=== PATIENT | male | born 1930 | race Caucasian/White ===

== ENCOUNTER 2017-02-05 17:04 | Inpatient (IN) | payer MEDICARE, OTHER ==
[~2017-02-05] VITALS: Ht 170.2 cm; Wt 91.5 kg
[~2017-02-05 17:04] MED LIST: CHOL200025 PO; CYAN500L3 SL; FLEC100T2 PO; METO-386 PO; VIT B PO; WARF2.5T82 PO
[2017-02-05 17:17] VITALS: BP 148/81; PULSE 80; RESP 16; O2SAT 96
--- NOTE | 2017-02-05 17:43 | ED.REPORT ---
HPI-Abd Pain M 40 and Over Date of Service Feb 05, 2017 ED Provider: Lloyd Santos DO Pt is a 86 year old male with a history of hypertension, diverticulosis, and afib on Warfarin who presents to the ED sent from complaining of tight abdominal pain that radiated from his left-side to his right-side onset 5 days ago. He states that his PCP was concerned about his abdominal bloating which is why he came in. Additional symptoms include decreased appetite over the past few weeks that is worsening, lower leg edema, and SOB. He denies dysuria or vomiting. Pt states that his bowel movements have been regular, but are sometimes bloody due to hemorrhoids. He has had medication changes for his hypertension recently. Nursing Notes Stated Complaint: KIDNEYS Chief Complaint: Male Abdominal Pain Nursing Notes Reviewed: Yes Allergies: Coded Allergies: Latex, Natural Rubber (Verified Allergy, Intermediate, Hives, 02/05/17) Uncoded Allergies: SOAPS, DETERGENTS, BLEACH (Allergy, Unknown, 11/07/15) pt not sure of this senstivity Scheduled ([Vit B1 50 Mg]) 100 MG PO DAILY Cholecalciferol (Vitamin D3) (Vitamin D3) 2,000 Unit Tablet 2,000 UNIT PO DAILY Cyanocobalamin (Vitamin B-12) (B-12) 500 Mcg Tab.rapdis 500 MCG SL DAILY Diltiazem ER (Dilt XR) 120 Mg Cap.er.deg 120 MG PO DAILY Warfarin Sodium (Warfarin Sodium) 2.5 Mg Tablet 2.5 MG PO SAT,SAT,,SAT,SAT,S Warfarin Sodium (Warfarin Sodium) 2.5 Mg Tablet 2.5 MG PO BID ON SATURDAY ONLY General Time Seen by MD: 17:35 Chief Complaint Abdominal pain Hx Obtained From: Patient, Spouse Arrived By: Walk-in Sudden in Onset?: No Onset Occurred: 5 days ago Symptom Duration: Constant Location: : Diffuse Quality: Painful Severity: Current: Moderate Severity: Maximum: Severe Recent Healthcare: Recent doctor visit Similar Sx Previous: No Risk Factors )( AAA Risk Stratification Hypertension Smoking Risk factors reviewed Past Medical History Past Medical History Notes: Seen at [facility] for syncope, started on Levaquin for Pneumonia Past Medical History Lung Mass On CT - Bx negative for malignancy, following w/serial imaging Atrial fibrillation dx 04/01/2014 on coumadin Ureteral stone 02/12/2014 s/p ESWL by Dr. 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 No previous h/o cardiac disease - ECHO in 03/2014 showed EF 50%, normal RV function, RVSP 28, no valvular disease, LA mod dilated, RA mildly dilated - MIBI in 01/2013 showed questionable inferior defect, probably normal Lung biopsy [place] [address] Lucas, non-cancerous Reports: Atrial fibrillation, Thyroid disease Past Surgical History right ankle surgery Arthroscopic knee surgery Reports: Appendectomy Smoking History Former Smoker (quit in 1970) Social History Alcohol Use: 1-3 per day Other Social History: Good social support, Ambulatory Status Independent Review of Systems Decreased appetite over the past few weeks that is worsening Abdominal bloating Constitutional: Denies: Fever Respiratory: Reports: Shortness of breath, Denies: Non-productive cough, Prod cough, clear Cardiovascular: Denies: Chest pain GI: Reports: Abdominal pain, Denies: Vomiting Male: Denies Dysuria Musculoskeletal: Reports: Extremity swelling (lower leg edema) Complete sys rev & neg: except as marked. Physical Exam Initial Vital Signs Vital Signs (First) Date Time Temp Pulse Resp B/P Pulse Ox O2 Delivery O2 Flow Rate FiO2 02/05/17 17:17 36.5 80 16 148/81 96 Room Air 02/05/17 20:08 2 Initial VS: Reviewed Head / Eyes: Atraumatic, Normocephalic Neck: Supple, Full range of motion Extremities: Vascular intact, Neuro intact, No swelling, No tenderness Skin: Warm, Dry, No cyanosis Neurologic: Alert, Oriented, Nonfocal Psychiatric: Mood/affect normal, Behavior normal, Normal thought content General/Constitutional: Awake, Alert Respiratory / Chest: Atraumatic, Breath sounds NL, Breath sounds = bilat, No respiratory distress Good air movement Cardiovascular: Heart rate NL, Regular rhythm, Heart sounds NL Lower Ext Edema: Positive: Bilateral 1+, Pitting Abdomen: Atraumatic Tense distension with no focal tenderness Back: Full range of motion, Non-tender Interpretation & Diagnostics Blood Gas Labs: /7.48/37/113/27.9/4.1/ fiO2 of 5 liters Lab Results Interpretation Result Diagram: 02/05/17 17502/05/17 175 Test 02/05/17 17:00 02/05/17 17:59 02/05/17 18:00 02/05/17 22:50 Hold Purple Top Tube Received (Received) Hold Blue Top Tube Received (Received) Hold Red Top Tube Received (Received) Hold Chandler Top Tube Received (Received) White Blood Count 6.7th/mm3 (3.8-10.1) Red Blood Count 3.94mil/mm3 (4.40-5.80) Hemoglobin 14.3g/dL (13.8-17.2) Hematocrit 41.7% (41.0-50.0) Mean Corpuscular Volume 105.8fL (81-100) Mean Corpuscular Hemoglobin 36.3pg (27.0-35.0) Mean Corpuscular Hemoglobin Concent 34.3% (32.0-37.0) Red Cell Distribution Width 14.3% (12.3-15.4) Platelet Count 132bil/L (150-400) Neutrophils (%) (Auto) 69.6% (40-74) Lymphocytes (%) (Auto) 14.6% (14-46) Monocytes (%) (Auto) 14.1% (4-12) Eosinophils (%) (Auto) 0.9% (0-5) Basophils (%) (Auto) 0.5% (0-3) Prothrombin Time 44.8sec (8.1-12.5) Prothromb Time International Ratio 4.07ratio D-Dimer 0.81mg/L FEU (<0.50) Sodium Level 138mEq/L (134-144) Potassium Level 4.0mEq/L (3.5-5.2) Chloride Level 99mEq/L (97-108) Carbon Dioxide Level 23mmol/L (18-29) Blood Urea Nitrogen 11mg/dL (8-27) Creatinine 0.73mg/dL (0.76-1.27) Estimat Glomerular Filtration Rate 108mL/min (>59) Glucose Level 101mg/dL (60-99) Calcium Level 8.6mg/dL (8.5-10.1) Magnesium Level 1.9mg/dL (1.6-2.6) Total Bilirubin 2.3mg/dL (0.0-1.2) Aspartate Amino Transf (AST/SGOT) 89U/L (0-50) Alanine Aminotransferase (ALT/SGPT) 32U/L (0-44) Alkaline Phosphatase 149U/L (25-160) Pro-B-Type Natriuretic Peptide 461.5pg/mL (0-486) Total Protein 6.8g/dL (6.4-8.4) Albumin 2.8g/dL (3.4-5.0) Hold Bee Top Tube Received (Received) ECG Interpretation ECG Interpretation: Apparent sinus rhyhtm, Poor quality tracing due to patient's tremor Time: 18:02 Interpreted by: ED physician ECG Interpretation: Atrial fibrillation, rate 88 Old inferior infarct Time: 22:46 Interpreted by: ED physician X-Ray Chest Interpretation Chest Xray Interpretation: IMPRESSION: Left basilar atelectasis. Otherwise stable chest radiograph. Dictated by: Antione Marques M.D. on 02/05/2017 at 18:50 Approved by: Antione Marques M.D. on 02/05/2017 at 18:51 View: AP & lat Interpretation / Wet Read by: Interpret - Radiologist CT Abd / Pelvis Interpretation IMPRESSION: 1. Prominent loops of small bowel with air-fluid levels consistent with an adynamic ileus. No evidence of obstruction. 2. Cholelithiasis with no CT evidence of acute cholecystitis. 3. Cirrhosis with splenomegaly. Minimal varices. Moderate abdominal ascites. Dictated by: Antione Marques M.D. on 02/05/2017 at 20:05 Approved by: Antione Marques M.D. on 02/05/2017 at 20:11 Study type: Abdominal CT IV contrast, Abdom CT oral contrast Interpretation / Wet Read by: Interpret - Radiologist Re-Eval/Medical Decision Source of Hx: Old records Time of Eval: 21:55 Re-Evaluation/Progress Note: Pt rechecked. He states that his pain is now only left side instead of the right side. During his road test, he was really short of breath. Updated the family on his imaging and lab results. Discussed plan for admission. Pt understands and agrees with plan. All questions addressed. Time of Eval: 23:12 Patient Status: Condition improved Re-Evaluation/Progress Note: Pt rechecked. He states that he feels better with nitro. Consultation : Referral / Consult Name: Patricia Asif DO Consulted With: Hospitalist Call Returned at: 23:15 [place] Operator: Will see patient, Agrees with plan, Accepts admit Note: Discussed pt's case with hospitalist, Dr. Asif. She accepts admission. Counseled Regarding: Diagnosis, Lab results, Need for admission Discharge & Departure Primary Impression: Cirrhosis of liver with ascites Additional Impressions: Shortness of breath Elevated troponin Supratherapeutic INR Macrocytosis Disposition: ADMITTED TO HOSPITAL Vital Signs - All Vital Signs Date Time Temp Pulse Resp B/P Pulse Ox O2 Delivery O2 Flow Rate FiO2 02/05/17 23:00 81 16 131/83 95 Nasal Cannula 4 02/05/17 20:08 88 16 135/75 95 Nasal Cannula 2 02/05/17 17:17 36.5 80 16 148/81 96 Room Air )( All Prior VS Reviewed: Yes Condition: Stable Referrals: Jennifer Hunter DO (PCP) Scribe Attestation Portions of this note were transcribed by Meghan Lemons. I, Dr. Santos, personally performed the history, physical exam and medical decision-making; I reviewed and confirmed the accuracy of the information in the transcribed note. copies to: Jennifer Hunter Gary R DO Feb 05, 2017 17:43 Meghan Lemons Feb 05, 2017 18:13
[2017-02-05 18:06] LABS: BASOPHILS % (AUTO) 0.5 % (0-3); EOSINOPHILS % (AUTO) 0.9 % (0-5); MONOCYTES % (AUTO) 14.1 % (4-12); Mean Corpuscular Hemoglobin 36.3 pg (27.0-35.0); Mean Corpuscular Volume 105.8 fL (81-100); NEUTROPHILS % (AUTO) 69.6 % (40-74); Platelet Count 132 bil/L (150-400)
[2017-02-05] MEDS ORDERED: Iohexol 300 mg/mL 30 mL Inj PO ONE (18:10)
[2017-02-05 18:22] LABS: INR 4.07 ratio
[2017-02-05 18:29] LABS: TROPONIN T 0.02 ug/L (0.0-0.011)
[2017-02-05 18:40] LABS: Magnesium 1.9 mg/dL (1.6-2.6)
--- NOTE | 2017-02-05 18:52 | DRSVH ---
PROCEDURE: X-RAY CHEST, TWO VIEWS ([id number]) INDICATIONS: sob TECHNIQUE: 2 views of the chest were acquired. COMPARISON: [facility], CR, CHEST 2VW, 08/17/2014, 16:20. [facility], [place], C HEST 2VW, 06/04/2014, 8:49. [facility], CR, CHEST 2VW, 07/18/2011, 12:25. FINDINGS: Surgical changes and devices: None. Lungs and pleura: No pleural effusions or pneumothorax. Left basilar atelectasis otherwise the lungs are clear. Mediastinum: Mediastinal contours are normal. Heart size is normal. Bones and chest wall: No suspicious bony abnormalities. Soft tissues appear unremarkable. Thoracic spine degenerative change. IMPRESSION: Left basilar atelectasis. Otherwise stable chest radiograph. Dictated by: Antione Marques M.D. on 02/05/2017 at 18:50 Approved by: Antione Marques M.D. on 02/05/2017 at 18:51
[2017-02-05 20:08] VITALS: BP 135/75; PULSE 88; RESP 16; O2SAT 95
--- NOTE | 2017-02-05 20:12 | DRSVH ---
PROCEDURE: CT ABDOMEN AND PELVIS WITH CONTRAST ([id number]) INDICATIONS: abdominal distension TECHNIQUE: After the administration of oral and intravenous contrast, 5 mm thick sections acquired from the diap hragms to the symphysis. 5 mm thick coronal and sagittal reformats were performed. For radiation do se reduction, the following was used: automated exposure control, adjustment of mA and/or kV accordi ng to patient size. COMPARISON: None. FINDINGS: Image quality: Excellent. ABDOMEN: Lung bases: Lung bases are clear. Heart size is normal. Solid organs: Nodular confirmation of the liver consistent with cirrhosis. No discrete masses on this single phase CT. Cholelithiasis with no CT evidence of acute cholecystitis. Splenomegaly otherwise t he spleen is normal. The pancreas, adrenal glands are normal. Atrophic kidneys. 4 mm nonobstructing r enal calculus.. Peritoneum and bowel: Minimally dilated loops of small bowel with air-contrast levels. No evidence of obstruction. The colon is grossly normal. The stomach contains a moderate amount of oral contrast wa s otherwise normal. Moderate abdominal ascites. Nodes and vessels: No retroperitoneal or mesenteric adenopathy. Aorta and inferior vena cava are no rmal in caliber. Miscellaneous: No ventral hernias. PELVIS: Genitourinary: Bladder wall thickness is normal. Miscellaneous: No inguinal hernias or adenopathy. Bones: No suspicious bony lesions. No vertebral body compression fractures. IMPRESSION: 1. Prominent loops of small bowel with air-fluid levels consistent with an adynamic ileus. No evidenc e of obstruction. 2. Cholelithiasis with no CT evidence of acute cholecystitis. 3. Cirrhosis with splenomegaly. Minimal varices. Moderate abdominal ascites. Dictated by: Antione Marques M.D. on 02/05/2017 at 20:05 Approved by: Antione Marques M.D. on 02/05/2017 at 20:11
[2017-02-05] MEDS ORDERED: DILT120C46 PO (22:09)
--- NOTE | 2017-02-05 22:22 | ABG ---
DateTimeAnalyzed 22:12:08 -_ pH ____7.482 - pCO2 ___37.3__ -mmHg pO2 113 -mmHg HCO3- ___27.9__ -mmol/L ABE ____4.1__ -mmol/L tHb ___13.0__ -g/dL O2Hb ___97.9__ -% COHb ____2.2__ -% MetHb ____0.0__ -% sO2 ___99.9__ -% FIO2 ___21.0__ -% Drawn By MD - Date/Time Notified____ 22:21:00 -_ Liter_Flow ____5.00_ -L/min Oxygen Device 1 __CANNULA - Notified By MD - Notified Whom DR ANDELIN - K+ ____4.0__ -mmol/L 3.5 5.0 tO2 ___18.0__ -Vol% Manuel test _Positive -
[2017-02-05] MEDS ORDERED: LORazepam 0.5 mg Tablet PO ONE (22:35)
[2017-02-05] MEDS ORDERED: Nitroglycerin 2% 1 Gm Ointment TOPICAL ONE (22:35)
[2017-02-05 23:00] VITALS: BP 131/83; PULSE 81; RESP 16; O2SAT 95
[2017-02-05 23:31] VITALS: BP 124/74; PULSE 86; RESP 21; O2SAT 96
[2017-02-06] VITALS (9 sets, daily range): BP systolic 109–136; BP diastolic 61–80; PULSE 72–95; RESP 16–22; O2SAT 95–98
[2017-02-06] MEDS ORDERED: Ondansetron 2 mg/mL 2 mL Inj IVPUSH PRN
[2017-02-06] MEDS ORDERED: Polyethylene Glycol (PEG) 17 Gm Powder PO PRN
[2017-02-06] MEDS ORDERED: Alum-Mag Hydrox-Simeth 30 mL Suspension PO PRN
--- NOTE | 2017-02-06 00:36 | PCM.HPMED ---
Subjective Date of Service Feb 06, 2017 Primary Provider: Admitting Physician: Patricia Asif DO Primary Care Physician: Jennifer Hunter DO Attending Physician: Patricia Asif DO Chief Complaint: Abdominal Swelling and Pain History of Present Illness: Patient is a pleasant 86 y/o [place] male with past medical history of HTN, Diverticulosis, Afib on Warfarin who was sent by his PCP, Dr. Hunter, for increased ABD swelling and pain with associated SOB. Patient states that swelling began 2 weeks ago when he noticed that he was 7lbs heavier that the few days before, and his belly seemed more tense. For the past week, patient has had dull ABD pain that was mainly on the lower left quadrant and would radiate across to the right side. Patient has a significant EtOH history with 2 -3 whiskey drinks with soda a day, but he reports that he "cut back" 3 months ago to just wine. Patient drinks 3 glasses of wine a day. Patient denies any previous ABD swelling in the past, and has never had a formal diagnosis of cirrhosis. Patient reports that he does have internal and external hemorrhoids from frequent constipation that will bleed occasionally. Associated symptoms include SOB, and the patient has had mild CP in the ED. Denies fevers, chills, N/V/D, cough, muscle pain, dark stools, dysuria, or hematuria. In the ED, patient had mild CP and a serum trop came back 0.02 without any EKG changes. Trops are trending. Patient was given NTG with resolution of sxs, and one dose of 0.5mg Ativan. ABD CT showed cirrhosis w/ splenomegaly with moderate abdominal ascites. Review of Systems: ROS negative unless otherwise noted above. Allergies Coded Allergies: Latex, Natural Rubber (Verified Allergy, Intermediate, Hives, 02/05/17) Uncoded Allergies: SOAPS, DETERGENTS, BLEACH (Allergy, Unknown, 11/07/15) pt not sure of this senstivity Home Medications ([Vit B1 50 Mg]) 100 MG PO DAILY Cholecalciferol (Vitamin D3) (Vitamin D3) 2,000 Unit Tablet 2,000 UNIT PO DAILY Cyanocobalamin (Vitamin B-12) (B-12) 500 Mcg Tab.rapdis 500 MCG SL DAILY Diltiazem ER (Dilt XR) 120 Mg Cap.er.deg 120 MG PO DAILY Warfarin Sodium (Warfarin Sodium) 2.5 Mg Tablet 2.5 MG PO MON,WED,,SAT,SAT,S Warfarin Sodium (Warfarin Sodium) 2.5 Mg Tablet 2.5 MG PO BID ON SATURDAY ONLY PMH Lung Mass On CT - Bx negative for malignancy, following w/serial imaging Atrial fibrillation on Warfarin Ureteral stone HTN L shoulder osteoarthritis H/o Tuberculosis in 1970 s/p tx x 9months Cataracts Eczema Impaired fasting glucose Mild diverticulosis No previous h/o cardiac disease - ECHO in 03/2014 showed EF 50% Lung biopsy [place] [address] Lucas, non-cancerous Surgical History R ankle surgery Appendectomy Knee arthroscopy Family History Noncontributory Social History Hx Alcohol Use: Yes (quit 3 whiskey/day 3 months ago; drinks 3 glasses of wine a day) Alcoholic Drinks Per Day: 3 glasses of wine per day Hx Substance Use: No Hx Tobacco Use: No (QUIT 30 YEARS AGO) Smoking Status: Former Smoker (quit in 1970) Living Arrangement: with Family Exam Vital Signs Vital Sign - Last Date Time Temp Pulse Resp B/P Pulse Ox O2 Delivery O2 Flow Rate FiO2 02/06/17 00:08 87 22 122/74 95 Nasal Cannula 2 02/05/17 17:17 36.5 Intake and Output 02/05/17 02/05/17 02/06/17 Cumulative From/Thru 15:00 23:00 07:00 02/05/17 17:17 - 02/05/17 20:08 Intake Total 900 ml 900 ml Balance 900 ml 900 ml Intake Oral 900 ml 900 ml Exam Constitutional: Awake, alert and oriented x4, no acute distress Head: normocephalic and atraumatic Eyes: mild scleral icterus, pink conjunctiva; pupils equal round and reactive to light Mouth: no posterior oropharynx erythema. uvula midline Heart: regular rate with and irregularly irregular rhythm; no murmurs rubs or gallops; 3+ pitting edema. Lungs: mild expiratory wheeze bilaterally. no rales or rhonchi ABD: protuberant, tense with positive fluid wave. bowel sounds present throughout Musculoskeletal: moves all four extremities appropriately; 5/5 boxing trainer strength bilaterally Neuro: CN II-XII intact. no focal deficits. Skin: warm, dry, no rash Psych: appropriate mood and affect Lab and Diagnostics Labs Item Value Date Time Red Blood Count 3.94 mil/mm3 L 02/05/171758 Mean Corpuscular Volume 105.8 fL H 02/05/171758 Mean Corpuscular Hemoglobin 36.3 pg H 02/05/171758 Mean Corpuscular Hemoglobin Concent 34.3 % 02/05/171758 Red Cell Distribution Width 14.3 % 02/05/171758 Neutrophils (%) (Auto) 69.6 % 02/05/17 175 Lymphocytes (%) (Auto) 14.6 % 02/05/17 175 Monocytes (%) (Auto) 14.1 % H 02/05/171758 Eosinophils (%) (Auto) 0.9 % 02/05/171758 Basophils (%) (Auto) 0.5 % 02/05/171758 Estimat Glomerular Filtration Rate 108 mL/min 02/05/171758 Calcium Level 8.6 mg/dL 02/05/171758 Magnesium Level 1.9 mg/dL 02/05/171758 Total Bilirubin 2.3 mg/dL H 02/05/171758 Aspartate Amino Transf (AST/SGOT) 89 U/L H 02/05/17 175 Alanine Aminotransferase (ALT/SGPT) 32 U/L 02/05/171758 Alkaline Phosphatase 149 U/L 02/05/171758 Troponin T 0.020 ug/L H 02/05/171758 Troponin T 0.023 ug/L H 02/05/172249 Pro-B-Type Natriuretic Peptide 461.5 pg/mL 02/05/171758 Total Protein 6.8 g/dL 02/05/171758 Albumin 2.8 g/dL L 02/05/171758 Prothrombin Time 44.8 sec H 02/05/171758 Prothromb Time International Ratio 4.07 ratio 02/05/171758 D-Dimer 0.81 mg/L FEU H 02/05/171758 Result Diagram: 02/05/17175802/05/171758 X-Rays, CTs and MRIs PROCEDURE: X-RAY CHEST, TWO VIEWS IMPRESSION: Left basilar atelectasis. Otherwise stable chest radiograph. Dictated by: Antione Marques M.D. on 02/05/2017 at 18:50 PROCEDURE: CT ABDOMEN AND PELVIS WITH CONTRAST IMPRESSION: 1. Prominent loops of small bowel with air-fluid levels consistent with an adynamic ileus. No evidence of obstruction. 2. Cholelithiasis with no CT evidence of acute cholecystitis. 3. Cirrhosis with splenomegaly. Minimal varices. Moderate abdominal ascites. Dictated by: Antione Marques M.D. on 02/05/2017 at 20:05 12-lead ECG Sinus rhythm HR 88 Assessment & Plan Patient is a pleasant 86 y/o [place] male with past medical history of HTN, Diverticulosis, Afib on Warfarin who was sent by his PCP, Dr. Hunter, for increased ABD swelling and pain with associated SOB. - Acute Abdominal Ascites, Present on Admission, Active, Stable - Patient has moderate ABD ascites with associated pain and an active EtOH history with positive ascites on ABD CT - Hold IVF - Start Furosemide 60mg IV daily, adjust as needed - Start Spironolactone 25mg PO daily - Prep for Paracentesis of ABD fluid for tomorrow -Hold Anticoagulation until paracentesis - Obtain fluid studies that include: fluid Albumin, Cell Count, Culture, Gram Stain, Protein, lactate dehydrogenase, and Amylase - Obtain serum albumin in AM for SAAG - Acute Alcoholic Cirrhosis, Present on Admission, Active - Patient has an active EtOH history with AST: 89 and ALT 32 with positive cirrhotic findings on ABD CT - Consult GI for newly diagnosed Cirrhosis - Obtain Hepatitis panel - Acute Elevated Troponin, Present on Admission, Active - Patient had CP in ED with elevated troponin of 0.02 and no EKG changes - Trending troponin Q6 - Monitor - Acute Hyperbilirubinemia, POA, Active - Patient with cirrhosis/ascites and bilirubin of 2.3 on admission, evidence of cholelithiasis on CT w/o cholecystitis - Trend bilirubin following paracentesis - Monitor - Chronic Macrocytic Anemia, POA, Active - Patient has history of macrocytosis with MCV in the low 100s; 105 on admission - Order Vit B12/Thiamine studies - Continue home dose of B12 - Thiamine 100mg PO daily - History of Active EtOH Abuse, POA, Active, Stable - Patient has a h/o EtOH abuse with daily 3 glasses of wine a day and h/o whiskey use - CIWA protocol until cleared - Order Vitamin B12/Thiamine studies - Continue home dose of B12 - History of Afib, Stable - patient takes Warfarin daily - AM PT/INR before procedure - Hold off of anticoagulation until after paracentesis, then restart Warfarin following procedure - History of HTN, Stable - Patient was d/c'd off of Metoprolol Succinate 12.5 mg PO daily on 02/05 - Hold off of further blood pressure medications other than those listed above until after paracentesis, will monitor BP after procedure. Patient is admitted under inpatient status expected length of stay greater than 2 midnights due to severity of presenting symptoms, risk of adverse events, and complexity of treatment plan. Patient is Full Code Pain Evaluation: Adequate Pain Control GI Prophylaxis: Proton Pump Inhibitor VTE Prophylaxis Indicated: VTE on Admission VTE Prophylaxis: Theraputic Anticoag with Warfarin Resuscitation Status: CPR: Attempt Resuscitation Attending Statement The patient was seen and examined together with house staff on 02/06/2017 and I agree with the history, exam and plan as outlined in the note above. Seth Piedra DO Feb 06, 2017 00:36 Patricia Asif DO Feb 06, 2017 05:09
[2017-02-06] MEDS: Furosemide 10 mg/mL 4 mL Inj IVPUSH SCH ×2 (00:47→09:14)
[2017-02-06] MEDS: Multivit-Miner-Folic Acid-Iron Tablet PO SCH ×2 (00:50→09:12)
[2017-02-06] MEDS ORDERED: LORazepam 0.5 mg Tablet PO PRN (01:25)
[2017-02-06] MEDS ORDERED: Magnesium Sulf 2 Gm/50 mL D5W IV PRN (01:25)
[2017-02-06] MEDS ORDERED: cloNIDine 0.1 mg Tablet PO PRN (01:25)
[2017-02-06] MEDS ORDERED: Flumazenil 0.1 mg/mL 5 mL Inj IV PRN (01:25)
[2017-02-06] MEDS ORDERED: Haloperidol 5 mg/mL Inj IV PRN ×2 (01:25)
[2017-02-06] MEDS ORDERED: LORazepam 1 mg Tablet PO PRN ×2 (01:25)
[2017-02-06 01:43] LABS: APPEARANCE,URINE HAZY (CLEAR,HAZY); COLOR,URINE YELLOW (YELLOW); OCCULT BLOOD,URINE LARGE (NEGATIVE); PH,URINE 6.5 (5.0-8.0); UROBILINOGEN,URINE NORMAL (NORMAL)
--- NOTE | 2017-02-06 03:51 | NUR ---
ADMIT Patient denies pain upon initial assessment. Up frequently after IV lasix. Needs constant reminders to not get up without assistance. Urinal is at bedside and instructed on how to use while in bed. Patient insists on getting up and does not call. Porter alarm in place. Seizure pads in place per [facility] protocol. Oriented to room and call light. Care is ongoing.
[2017-02-06] MEDS: chlordiazePOXIDE 25 mg Capsule PO SCH ×4 (03:57→20:50)
[2017-02-06 08:27] LABS: BASOPHILS % (AUTO) 0.5 % (0-3); EOSINOPHILS % (AUTO) 0.7 % (0-5); MONOCYTES % (AUTO) 14.4 % (4-12); Mean Corpuscular Hemoglobin 36.2 pg (27.0-35.0); Mean Corpuscular Volume 106.3 fL (81-100); NEUTROPHILS % (AUTO) 73.7 % (40-74); Platelet Count 111 bil/L (150-400)
[2017-02-06] MEDS ORDERED: FLC50T PO (08:27)
[2017-02-06] MEDS: Diltiazem CD 120 mg ER24 Capsule PO SCH (09:12)
[2017-02-06] MEDS: Pantoprazole 20 mg ER24 Tablet PO SCH ×2 (09:13→15:27)
--- NOTE | 2017-02-06 12:57 | PCM.PNMED ---
Subjective Date of Service Feb 06, 2017 Subjective No complaints. No further episodes of chest discomfort. No longer having any abdominal pain and feels that abdomen is a little softer. Exam Vital Signs Vital Sign - Last Date Time Temp Pulse Resp B/P Pulse Ox O2 Delivery O2 Flow Rate FiO2 02/06/17 10:00 81 02/06/17 09:17 36.6 16 109/61 95 Room Air 02/06/17 06:00 2.00 Intake and Output 02/05/17 02/05/17 02/06/17 Cumulative From/Thru 15:00 23:00 07:00 02/05/17 17:17 - 02/06/17 06:02 Intake Total 900 ml 0 ml 900 ml Output Total 1350 ml 1350 ml Balance 900 ml -1350 ml -450 ml Intake Oral 900 ml 0 ml 900 ml Output Urine Total 1350 ml 1350 ml Exam General: Alert and oriented x 3, no acute distress Heart: irregular Lungs: Clear Abdomen: Soft, protuberant with central tympany, non-tender, active BT Extremities: 1+ pitting edema of feet which is trace just below knees IVs and Medications Medications Reviewed: Medications were reviewed in detail Lab and Diagnostics Result Diagram: 02/06/17 0540 02/05/17 1759 X-Rays, CTs and MRIs PROCEDURE: X-RAY CHEST, TWO VIEWS IMPRESSION: Left basilar atelectasis. Otherwise stable chest radiograph. Dictated by: Antione Marques M.D. on 02/05/2017 at 18:50 PROCEDURE: CT ABDOMEN AND PELVIS WITH CONTRAST IMPRESSION: 1. Prominent loops of small bowel with air-fluid levels consistent with an adynamic ileus. No evidence of obstruction. 2. Cholelithiasis with no CT evidence of acute cholecystitis. 3. Cirrhosis with splenomegaly. Minimal varices. Moderate abdominal ascites. Dictated by: Antione Marques M.D. on 02/05/2017 at 20:05 12-lead ECG Sinus rhythm HR 88 Assessment & Plan Patient is a pleasant 86 y/o [place] male with past medical history of HTN, Diverticulosis, Afib on Warfarin who was sent by his PCP, Dr. Hunter, for increased ABD swelling and pain with associated SOB. - Acute Abdominal Ascites, Present on Admission, Active, Stable - Patient has moderate ABD ascites with associated pain (on admission) and an active EtOH history with positive ascites on ABD CT - today no abd pain or tenderness so SBE less likely - Hold IVF - Continue Furosemide 60mg IV daily, adjust as needed - Continue Spironolactone 25mg PO daily - Paracentesis of ABD fluid could not be done today due to prolonged INR (from last alena), recheck today and in am - Hold Anticoagulation until paracentesis - Obtain fluid studies that include: fluid Albumin, Cell Count, Culture, Gram Stain, Protein, lactate dehydrogenase, and Amylase - Obtain serum albumin in AM for SAAG (with chem panel) - Acute Alcoholic Cirrhosis, Present on Admission, Active - Patient has an active EtOH history with AST: 89 and ALT 32 with positive cirrhotic findings on ABD CT - Consider consult GI for newly diagnosed Cirrhosis - Hepatitis panel pending - possible UTI - UA positive leuk & nitrate, WBC 6-10 [id number] - will wait for urine culture results - Acute Elevated Troponin, Present on Admission, Active - Patient had CP in ED with elevated troponin of 0.02 and no EKG changes - Will recheck troponin today and then again in the am - Acute Hyperbilirubinemia, POA, Active - Patient with cirrhosis/ascites and bilirubin of 2.3 on admission, evidence of cholelithiasis on CT w/o cholecystitis - Trend bilirubin following paracentesis - Monitor - Chronic Macrocytic Anemia, POA, Active - Patient has history of macrocytosis with MCV in the low 100s; 105 on admission - Order Vit B12/Thiamine studies (pending) - Continue home dose of B12 - Thiamine 100mg PO daily - History of Active EtOH Abuse, POA, Active, Stable - Patient has a h/o EtOH abuse with daily 3 glasses of wine a day and h/o whiskey use - so far no signs/symptoms of withdrawal - CIWA protocol until cleared - Order Vitamin B12/Thiamine studies (pending) - Continue home dose of B12 - History of Afib, Stable - patient takes Warfarin daily - AM PT/INR before procedure - Hold off of anticoagulation until after paracentesis, then restart Warfarin following procedure - History of HTN, Stable - Patient was d/c'd off of Metoprolol Succinate 12.5 mg PO daily on 02/05 - Hold off of further blood pressure medications other than those listed above until after paracentesis, will monitor BP after procedure. Patient is admitted under inpatient status expected length of stay greater than 2 midnights due to severity of presenting symptoms, risk of adverse events, and complexity of treatment plan. Patient is Full Code GI Prophylaxis: Proton Pump Inhibitor VTE Prophylaxis: Theraputic Anticoag with Warfarin Resuscitation Status: CPR: Attempt Resuscitation Miriam Peters MD Feb 06, 2017 12:56 Miriam Peters MD Feb 06, 2017 12:56
--- NOTE | 2017-02-06 13:18 | NUR ---
NUTRITION ASSESSMENT: ASSESS: 86 YO male admitted for increased abd. pain and swelling with likely new diagnosis of cirrhosis. Pt with ETOH use history. Pt may have paracentesis today. PMHx: HTN, diverticulosis, a-fib on coumadin, ureteral stone, lung mass on CT(not malignant per biopsy), cataracts, eczema. LABS: Reviewed. Glu 101, Cr .73, AST 80, Alb 2.8. MEDS: Reviewed. Coumadin GI: No bm reported yet. CURRENT WT: 91.5 kg. (pt still with ascites and edema so likely not pt dry weight) IBW: 67.3 kg. DIET: General, Low sodium. No po intake reported. EST. NEEDS: [id number] kcals (22-30 kcals/kg BW), 80-100 g protein (1.2-1.5 g/kg IBW) NUTRITION DIAGNOSIS: 1.) Increased nutrient needs related to increased demand for nutrients as evidenced by new diagnosis of cirrhosis. NUTRITION INTERVENTION: 1.) Consider adding supplements if PO intake is not adequate to meet pt est. needs over the next 3-5 days. 2.) Recommend re-estimated est. needs once dry weight has been obtained. MONITOR / EVAL: PO intake, labs, nutritional status. Follow per moderate nutritional risk guidelines.
[2017-02-06 13:35] LABS: INR 3.29 ratio
--- NOTE | 2017-02-06 15:04 | NUR ---
Social Work-initial assessment: Data:See initial assessment. Pt is a 86 y/o male who was admitted on 02/05/17 for shortness of breath per H&P. Pt's insurance is [employer] and [employer] and PCP is Sierra Addison MD. EMR reviewed. SW met with pt at bedside to discuss discharge planning, SW role explained. Pt is alert and oriented x3. Pt resides at home with his on [facility] where he remains independent with basic ADLS. Pt does not drive and uses a fww or w/c at baseline. Pt also has home CPAP. Pt has no [facility] care insurance or VA benefits. SW discussed DPOA/ advanced directive, pt confirms he has completed this, SW encouraged a copy to be brought in. Pt confirms he will likely discharge home when medically stable. No concerns noted around pt's capacity for self care, from RN or MD. SW provided pt with discharge planning checklist and encouraged pt to call with any questions, phone number provided. Pt's to provide transport home. No anticipated discharge needs. SW will continue to follow if needs arise. Assessment:Pt who is independent at baseline. Plan:Pt to discharge home when medically stable via POV. No anticipated discharge needs. SW will continue to follow if needs arise. DAVIN Crandall Addendum: 02/06/17 at 1514 by FLOR MOON SS Amended: Links added.
[2017-02-07] VITALS (8 sets, daily range): BP systolic 118–132; BP diastolic 68–82; PULSE 64–89; RESP 18–20; O2SAT 95–97
[2017-02-07 02:08] LABS: Hepatitis A Antibody IgM Negative (Negative); Hepatitis B Core Antibody IgM Negative (Negative)
[2017-02-07 03:08] LABS: Vitamin B12 1534 pg/mL (211-946)
--- NOTE | 2017-02-07 04:45 | NUR ---
Uneventful night PT rested comfortably all night with no complaints of pain and only a little SOBOE. ABD still very distended with hyper bowel sounds, PT anticipating paracentesis today if his INR is at an appropriate level.
[2017-02-07 06:07] LABS: BASOPHILS % (AUTO) 0.2 % (0-3); EOSINOPHILS % (AUTO) 2.1 % (0-5); MONOCYTES % (AUTO) 14.4 % (4-12); Mean Corpuscular Hemoglobin 35.8 pg (27.0-35.0); Mean Corpuscular Volume 106.3 fL (81-100); NEUTROPHILS % (AUTO) 68.3 % (40-74); Platelet Count 107 bil/L (150-400)
[2017-02-07 07:03] LABS: TROPONIN T 0.029 ug/L (0.0-0.011)
[2017-02-07] MEDS ORDERED: Potassium Chloride 20 mEq SR Tablet PO ONE (08:10)
[2017-02-07] MEDS ORDERED: Magnesium Sulf 2 Gm/50mL Water 2 GM in IV Premix 1 EACH IV ONE (08:10)
[2017-02-07] MEDS ORDERED: Furosemide 10 mg/mL 4 mL Inj IVPUSH SCH ×2 (08:30→20:30)
[2017-02-07 09:08] LABS: INR 2.89 ratio
[2017-02-07] MEDS: Multivit-Miner-Folic Acid-Iron Tablet PO SCH (09:14)
[2017-02-07] MEDS: Diltiazem CD 120 mg ER24 Capsule PO SCH (09:15)
[2017-02-07] MEDS: Pantoprazole 20 mg ER24 Tablet PO SCH ×2 (09:15→17:20)
--- NOTE | 2017-02-07 13:23 | PCM.PNMED ---
Subjective Date of Service Feb 07, 2017 Subjective pt was eating breakfast, denied any SOB, but still has very distended belly, similar to yesterday had normal BM yesterday, denied pain on belly, no n,v responded to 60mg iv lasix qd, chged to 40mg iv given normal renal function, awaits INR Exam Vital Signs Vital Sign - Last Date Time Temp Pulse Resp B/P Pulse Ox O2 Delivery O2 Flow Rate FiO2 02/07/17 05:54 64 02/07/17 05:43 36.2 18 118/68 97 Room Air 02/06/17 06:00 2.00 Intake and Output 02/06/17 02/06/17 02/07/17 Cumulative From/Thru 15:00 23:00 07:00 02/05/17 17:17 - 02/07/17 05:46 Intake Total 620 ml 200 ml 1720 ml Output Total 1200 ml 1000 ml 3550 ml Balance -580 ml -800 ml -1830 ml Intake Oral 620 ml 200 ml 1720 ml Output Urine Total 1200 ml 1000 ml 3550 ml # Voids 3 3 # Bowel Movements 2 0 2 Exam AAOX3, no flapping tremor NAD, comfortably laying down on the bed no JVD, MMM, no LAD RRR, nl s1, s2 no mrg CTAB, no w,c S,markedly distended, nontender, BS+ 2+edema bilaterally, erythematous, IVs and Medications Medications Reviewed: Medications were reviewed in detail Lab and Diagnostics Result Diagram: 02/07/17 0500 02/07/17 0500 X-Rays, CTs and MRIs PROCEDURE: X-RAY CHEST, TWO VIEWS IMPRESSION: Left basilar atelectasis. Otherwise stable chest radiograph. Dictated by: Antione Marques M.D. on 02/05/2017 at 18:50 PROCEDURE: CT ABDOMEN AND PELVIS WITH CONTRAST IMPRESSION: 1. Prominent loops of small bowel with air-fluid levels consistent with an adynamic ileus. No evidence of obstruction. 2. Cholelithiasis with no CT evidence of acute cholecystitis. 3. Cirrhosis with splenomegaly. Minimal varices. Moderate abdominal ascites. Dictated by: Antione Marques M.D. on 02/05/2017 at 20:05 12-lead ECG Sinus rhythm HR 88 Assessment & Plan Patient is a pleasant 86 y/o [place] male with past medical history of HTN, Diverticulosis, Afib on Warfarin who was sent by his PCP, Dr. Hunter, for increased ABD swelling and pain with associated SOB. acute, active - Acute Abdominal Ascites, Present on Admission, Active, Stable, Patient has moderate ABD ascites with associated pain (on admission) and an active EtOH history with positive ascites on ABD CT - pt remained clinically stable with ascities, SBE less likely - Hold IVF - s/p 60mg lasix iv, chg to 40mg iv bid, Continue Spironolactone 25mg PO daily - hold Anticoagulation until paracentesis - Obtain fluid studies that include: fluid Albumin, Cell Count, Culture, Gram Stain, Protein, lactate dehydrogenase, and Amylase - Obtain serum albumin in AM for SAAG (with chem panel) #Newly diagnosed decompensated Cirrhosis, presumably due to alcohol abuse, POA, labs showed mild transaminitis, coagulapathy(hard to interpret given Warfarin on board), abd CT showed, new onset ascites, minimal varices. Viral hep panel neg. -no signs of HE, variceal bleeding, FU with GI for baseline w/u given cirrhosis , -addressed etoh cessation, pt seems to agree. -will consider nonselective BB chronic, stable, resolved, #positive UA, UCX grew mixed john, remained asymptomatic #Acute Elevated Troponin, Present on Admission, Active, Patient had CP in ED with elevated troponin of 0.02 and no EKG changes, likely demand, level plateaued, won't trend anymore # Chronic Macrocytic Anemia, POA, Active - Patient has history of macrocytosis with MCV in the low 100s; 105 on admission - Order Vit B12/Thiamine studies (pending) - Continue home dose of B12 - Thiamine 100mg PO daily # History of Active EtOH Abuse, POA, Active, Stable - Patient has a h/o EtOH abuse with daily 3 glasses of wine a day and h/o whiskey use - so far no signs/symptoms of withdrawal - CIWA protocol until cleared - Order Vitamin B12/Thiamine studies (pending) - Continue home dose of B12 #History of Afib, Stable - patient takes Warfarin daily - AM PT/INR before procedure - Hold off of anticoagulation until after paracentesis, then restart Warfarin following procedure #History of HTN, Stable - Patient was d/c'd off of Metoprolol Succinate 12.5 mg PO daily on 02/05 - Hold off of further blood pressure medications other than those listed above until after paracentesis, will monitor BP after procedure. dispo: likely 1-2more days Patient is Full Code GI Prophylaxis: Proton Pump Inhibitor VTE Prophylaxis: Theraputic Anticoag with Warfarin Resuscitation Status: CPR: Attempt Resuscitation Time spent 35min Amrit Mark MD Feb 07, 2017 08:26
[2017-02-07] MEDS: Furosemide 10 mg/mL 4 mL Inj IVPUSH SCH (17:20)
--- NOTE | 2017-02-07 19:30 | NUR ---
uneventful shift Pt denied any pain. Pt rested and visited with family during shift. Pt spill urinal one time. Abdomen is still very acsitic, urine is brown, appetite in low. Pt was A&O, only wanted to get oob with sba to bathroom once.
[2017-02-08] VITALS (8 sets, daily range): BP systolic 101–136; BP diastolic 55–75; PULSE 67–106; RESP 16–20; O2SAT 92–98
[2017-02-08 06:46] LABS: BASOPHILS % (AUTO) 0.3 % (0-3); EOSINOPHILS % (AUTO) 2.6 % (0-5); MONOCYTES % (AUTO) 13.6 % (4-12); Mean Corpuscular Hemoglobin 36.1 pg (27.0-35.0); Mean Corpuscular Volume 106.6 fL (81-100); NEUTROPHILS % (AUTO) 66.6 % (40-74); Platelet Count 126 bil/L (150-400)
[2017-02-08] MEDS ORDERED: Magnesium Sulf 2 Gm/50mL Water 2 GM in IV Premix 1 EACH IV ONE (07:20)
[2017-02-08] MEDS ORDERED: Potassium Chloride 20 mEq SR Tablet PO ONE (07:20)
[2017-02-08 08:06] LABS: INR 2.44 ratio
--- NOTE | 2017-02-08 09:03 | PCM.PNMED ---
Subjective Date of Service Feb 08, 2017 Subjective pt is doing better, less shaky, maintained orientation, AAOX3, less tense abdomen, eating well with good appetite, denied constipation, responded well to lasix. INR further trended down, but not at goal Exam Vital Signs Vital Sign - Last Date Time Temp Pulse Resp B/P Pulse Ox O2 Delivery O2 Flow Rate FiO2 02/08/17 08:33 36.8 67 18 136/75 98 Room Air 02/06/17 06:00 2.00 Intake and Output 02/07/17 02/07/17 02/08/17 Cumulative From/Thru 15:00 23:00 07:00 02/05/17 17:17 - 02/08/17 06:57 Intake Total 900 ml 400 ml 3020 ml Output Total 350 ml 1155 ml 625 ml 5680 ml Balance -350 ml -255 ml -225 ml -2660 ml Intake Oral 900 ml 400 ml 3020 ml Output Urine Total 350 ml 1155 ml 625 ml 5680 ml # Voids 5 3 11 # Bowel Movements 0 0 2 Exam AAOX3, no flapping tremor NAD, comfortably laying down on the bed no JVD, MMM, no LAD RRR, nl s1, s2 no mrg CTAB, no w,c S,markedly distended, nontender, BS+ 1+edema bilaterally, erythematous, IVs and Medications Medications Reviewed: Medications were reviewed in detail Lab and Diagnostics Result Diagram: 02/08/1753402/08/17 0535 X-Rays, CTs and MRIs PROCEDURE: X-RAY CHEST, TWO VIEWS IMPRESSION: Left basilar atelectasis. Otherwise stable chest radiograph. Dictated by: Antione Marques M.D. on 02/05/2017 at 18:50 PROCEDURE: CT ABDOMEN AND PELVIS WITH CONTRAST IMPRESSION: 1. Prominent loops of small bowel with air-fluid levels consistent with an adynamic ileus. No evidence of obstruction. 2. Cholelithiasis with no CT evidence of acute cholecystitis. 3. Cirrhosis with splenomegaly. Minimal varices. Moderate abdominal ascites. Dictated by: Antione Marques M.D. on 02/05/2017 at 20:05 12-lead ECG Sinus rhythm HR 88 Assessment & Plan Patient is a pleasant 86 y/o [place] male with past medical history of HTN, Diverticulosis, Afib on Warfarin who was sent by his PCP, Dr. Hunter, for increased ABD swelling and pain with associated SOB. acute, active - Acute Abdominal Ascites, Present on Admission, Active, Stable, Patient has moderate ABD ascites with associated pain (on admission) and an active EtOH history with positive ascites on ABD CT. ascites is most likely related to cirrhosis, possibley malignancy, infection. - pt remained clinically stable with ascities, SBP less likely - s/p 60mg lasix iv, chg to 40mg iv bid, Continue Spironolactone 25mg PO daily - hold Anticoagulation until paracentesis, goal INR1.6 - awaits diagnostic and therapeutic paracentesis given new onset ascites, obtain fluid studies that include: fluid Albumin, Cell Count, Culture, Gram Stain, Protein, lactate dehydrogenase, and Amylase, serum albumin in AM for SAAG (with chem panel), - will add [id number] po today given INR level #Newly diagnosed decompensated Cirrhosis, presumably due to alcohol abuse, POA, labs showed mild transaminitis, coagulapathy(hard to interpret given Warfarin on board), abd CT showed, new onset ascites, minimal varices. Viral hep panel neg. -no signs of HE, variceal bleeding, FU with GI for baseline w/u given cirrhosis , -addressed etoh cessation, pt seems to agree. -will consider nonselective BB chronic, stable, resolved, #positive UA, UCX grew mixed john, remained asymptomatic #Acute Elevated Troponin, Present on Admission, Active, Patient had CP in ED with elevated troponin of 0.02 and no EKG changes, likely demand, level plateaued, won't trend anymore # Chronic Macrocytic Anemia, POA, Active - Patient has history of macrocytosis with MCV in the low 100s; 105 on admission - Order Vit B12/Thiamine studies (pending) - Continue home dose of B12 - Thiamine 100mg PO daily # History of Active EtOH Abuse, POA, Active, Stable - Patient has a h/o EtOH abuse with daily 3 glasses of wine a day and h/o whiskey use - so far no signs/symptoms of withdrawal - CIWA protocol until cleared - Order Vitamin B12/Thiamine studies (pending) - Continue home dose of B12 #History of Afib, Stable - patient takes Warfarin daily - AM PT/INR before procedure - Hold off of anticoagulation until after paracentesis, then restart Warfarin following procedure #History of HTN, Stable - Patient was d/c'd off of Metoprolol Succinate 12.5 mg PO daily on 02/05 - Hold off of further blood pressure medications other than those listed above until after paracentesis, will monitor BP after procedure. dispo: likely 1-2more days Patient is Full Code GI Prophylaxis: Proton Pump Inhibitor VTE Prophylaxis: Theraputic Anticoag with Warfarin Resuscitation Status: CPR: Attempt Resuscitation Time spent 35min Amrit Mark MD Feb 08, 2017 09:03
[2017-02-08] MEDS ORDERED: Phytonadione (Adult) 10 mg/1 mL Inj PO ONE (09:05)
[2017-02-08] MEDS: Diltiazem CD 120 mg ER24 Capsule PO SCH (09:18)
[2017-02-08] MEDS: Multivit-Miner-Folic Acid-Iron Tablet PO SCH (09:18)
[2017-02-08] MEDS: Pantoprazole 20 mg ER24 Tablet PO SCH ×2 (09:18→17:04)
[2017-02-08] MEDS: Furosemide 10 mg/mL 4 mL Inj IVPUSH SCH ×2 (09:19→17:05)
--- NOTE | 2017-02-08 18:35 | NUR ---
shift note Pt denied any pain during shift. Urine is now morteza instead of brown. Pt got OOB X1 to use bathroom and had medium BM. VS WNL. Pt slept and visited family during shift.
[2017-02-09] VITALS (8 sets, daily range): BP systolic 103–150; BP diastolic 61–79; PULSE 66–104; RESP 18–20; O2SAT 92–97
--- NOTE | 2017-02-09 05:21 | NUR ---
PT ACTIVITY & LEFT HAND DRESSING Pt has remained in room during shift. Pt has mostly been in bed, was observed to be up at side of bed by MELTER HELPER, tolerated activity well. Pt denies pain. Continue to monitor. Pt had gauze and coban dressing to left hand skin tear. Dressing removed, small amt of sero-sang. drainage. New Tefla and tegaderm dressings applied. Call light in reach. Bed alarm on. Intentional rounding.
--- NOTE | 2017-02-09 05:51 | NUR ---
TELEMETRY At this time, panel monitor called RN inquiring if pt had hx of A.Fib. Per telemetry monitoring, pt converted to A.fib approx 1830 on 02/08/17, and approx 0230 02/09/17, pt converted back to SR, no rate change. Pt continues to be SR at this time. Pt does have hx of A.fib, on coumadin. Continue to monitor.
[2017-02-09 06:13] LABS: BASOPHILS % (AUTO) 0.2 % (0-3); MONOCYTES % (AUTO) 14.4 % (4-12); Mean Corpuscular Hemoglobin 35.7 pg (27.0-35.0); Mean Corpuscular Volume 106.2 fL (81-100); Platelet Count 117 bil/L (150-400)
[2017-02-09 06:14] LABS: INR 1.72 ratio
[2017-02-09 06:23] LABS: Phosphorus 2.9 mg/dL (2.5-4.9)
[2017-02-09] MEDS ORDERED: Potassium Chloride 20 mEq SR Tablet PO ONE ×2 (07:25→16:35)
[2017-02-09] MEDS: Furosemide 10 mg/mL 4 mL Inj IVPUSH SCH ×2 (09:15→16:15)
[2017-02-09] MEDS: Pantoprazole 20 mg ER24 Tablet PO SCH ×2 (09:15→16:13)
[2017-02-09] MEDS: Multivit-Miner-Folic Acid-Iron Tablet PO SCH (09:15)
[2017-02-09] MEDS: Diltiazem CD 120 mg ER24 Capsule PO SCH (09:15)
--- NOTE | 2017-02-09 14:26 | PCM.PNMED ---
Subjective Date of Service Feb 09, 2017 Subjective INR 1.7 from [facility]bp[facility]2nt yesterday pt still had brisk response to lasix, less tense abdomen, not agitated for shaky, no confusion, denied any abd pain, eating well, good appetite, tentative scheduled for paracentesis today Exam Vital Signs Vital Sign - Last Date Time Temp Pulse Resp B/P Pulse Ox O2 Delivery O2 Flow Rate FiO2 02/09/17 13:04 36.7 82 18 118/67 97 Room Air 02/06/17 06:00 2.00 Intake and Output 02/08/17 02/08/17 02/09/17 Cumulative From/Thru 15:00 23:00 07:00 02/05/17 17:17 - 02/09/17 06:20 Intake Total 1136 ml 200 ml 4356 ml Output Total 2275 ml 1350 ml 9305 ml Balance -1139 ml -1150 ml -4949 ml Intake Oral 1136 ml 200 ml 4356 ml Output Urine Total 2275 ml 1350 ml 9305 ml # Voids 6 17 # Bowel Movements 1 3 Exam AAOX3, no flapping tremor NAD, comfortably laying down on the bed no JVD, MMM, no LAD RRR, nl s1, s2 no mrg CTAB, no w,c S,markedly distended, nontender, BS+ 1+edema bilaterally, erythematous, IVs and Medications Medications Reviewed: Medications were reviewed in detail Lab and Diagnostics Result Diagram: 02/09/1751902/09/17 05 X-Rays, CTs and MRIs PROCEDURE: X-RAY CHEST, TWO VIEWS IMPRESSION: Left basilar atelectasis. Otherwise stable chest radiograph. Dictated by: Antione Marques M.D. on 02/05/2017 at 18:50 PROCEDURE: CT ABDOMEN AND PELVIS WITH CONTRAST IMPRESSION: 1. Prominent loops of small bowel with air-fluid levels consistent with an adynamic ileus. No evidence of obstruction. 2. Cholelithiasis with no CT evidence of acute cholecystitis. 3. Cirrhosis with splenomegaly. Minimal varices. Moderate abdominal ascites. Dictated by: Antione Marques M.D. on 02/05/2017 at 20:05 12-lead ECG Sinus rhythm HR 88 Assessment & Plan Patient is a pleasant 86 y/o [place] male with past medical history of HTN, Diverticulosis, Afib on Warfarin who was sent by his PCP, Dr. Hunter, for increased ABD swelling and pain with associated SOB. acute, active #Acute Abdominal Ascites, Present on Admission, Active, Stable, Patient has moderate ABD ascites with associated pain (on admission) and an active EtOH history with positive ascites on ABD CT. ascites is most likely related to cirrhosis, possibly malignancy, infection. - pt remained clinically stable with ascities, SBP less likely - s/p 60mg lasix iv, chg to 40mg iv bid, Continue Spironolactone 25mg PO daily, responding well, monitor electrolytes closely, K>4, Mg>2, - hold Anticoagulation for now prior to paracentesis, goal INR1.6, 1.7 today close to target - awaits diagnostic and therapeutic paracentesis given new onset ascites, obtain fluid studies that include: fluid Albumin, Cell Count, Culture, Gram Stain, Protein, lactate dehydrogenase, and Amylase, serum albumin in AM for SAAG (with chem panel), #Newly diagnosed decompensated Cirrhosis, presumably due to alcohol abuse, POA, labs showed mild transaminitis, coagulapathy(hard to interpret given Warfarin on board), abd CT showed, new onset ascites, minimal varices. Viral hep panel neg. -no signs of HE, variceal bleeding, FU with GI for baseline w/u given cirrhosis , -addressed etoh cessation, pt seems to agree. -will consider nonselective BB #alcoholic hepatitis, hyperbilirubinemia, POA, AST/Kel level stable, likely due to alcohol, vial hep panel neg. trend CMP for now chronic, stable, resolved, #positive UA, UCX grew mixed john, remained asymptomatic #Acute Elevated Troponin, Present on Admission, Active, Patient had CP in ED with elevated troponin of 0.02 and no EKG changes, likely demand, level plateaued, won't trend anymore # Chronic Macrocytic Anemia, likely BM toxin, etoh abuse, continue home dose of B12, Thiamine 100mg PO daily # History of Active EtOH Abuse, POA, Active, Stable, addressed multiple times for complete cessation of etoh. #History of Afib, Stable, patient takes Warfarin daily, held since admission, s/ p [id number] po on 02/08 in anticipation of paracentesis, continue on telemetry #History of HTN, Patient was d/c'd off of Metoprolol Succinate 12.5 mg PO daily on 02/05, Hold off of further blood pressure medications other than those listed above until after paracentesis, will monitor BP after procedure. dispo: likely 1-2more days Patient is Full Code GI Prophylaxis: Proton Pump Inhibitor VTE Prophylaxis: Theraputic Anticoag with Warfarin VTE Mechanical Devices: Venous Foot Pump Resuscitation Status: CPR: Attempt Resuscitation Time spent 35min Amrit Mark MD Feb 09, 2017 14:26 dispo: likely 1-2more days Patient is Full Code GI Prophylaxis: Proton Pump Inhibitor VTE Prophylaxis: Theraputic Anticoag with Warfarin VTE Mechanical Devices: Venous Foot Pump Resuscitation Status: CPR: Attempt Resuscitation Time spent 35min Amrit Mark MD Feb 09, 2017 14:26
[2017-02-09 16:18] LABS: Magnesium 1.9 mg/dL (1.6-2.6)
--- NOTE | 2017-02-09 17:41 | NUR ---
Social Work: [facility] [place] SW visited patient's room to obtain signature of [facility] [facility]. ADEOLA has been signed by patient's spouse. DAVIN Cotton
--- NOTE | 2017-02-09 18:30 | NUR ---
Activity/abd Pt amb to BR with 1 person assist, unsteady with ambulation. Pt agreed to sit up in chair for dinner. Pt reporting difficulty managing urinal with increased urine output r/t diuretic and req a condom cath which was placed with effective results. Pt's abd remains tender and distended. Bed in lowest, locked position and call light in reach.
[2017-02-10] VITALS (8 sets, daily range): BP systolic 105–131; BP diastolic 56–79; PULSE 71–94; RESP 18–20; O2SAT 93–99
--- NOTE | 2017-02-10 04:35 | NUR ---
PT ACTIVITY/CARE At start of shift, pt sitting up in chair. Pt called for assistance back into bed. Pt remained in bed, sleeping intermittently the remainder of the shift. Condom catheter replaced towards end of shift, as previous device coming off. No c/o pain. Continue to monitor. Call light in reach. Bed alarm on. Intentional rounding.
[2017-02-10 06:03] LABS: Magnesium 1.8 mg/dL (1.6-2.6)
[2017-02-10] MEDS ORDERED: Potassium Chloride 20 mEq SR Tablet PO ONE ×2 (07:35→09:00)
[2017-02-10] MEDS ORDERED: Magnesium Sulf 2 Gm/50mL Water 2 GM in IV Premix 1 EACH IV ONE ×2 (07:35→09:00)
[2017-02-10] MEDS: Pantoprazole 20 mg ER24 Tablet PO SCH ×2 (08:30→17:03)
[2017-02-10] MEDS: Furosemide 10 mg/mL 4 mL Inj IVPUSH SCH ×2 (08:30→17:03)
[2017-02-10] MEDS: Multivit-Miner-Folic Acid-Iron Tablet PO SCH (08:31)
[2017-02-10] MEDS: Diltiazem CD 120 mg ER24 Capsule PO SCH (08:31)
--- NOTE | 2017-02-10 08:40 | PCM.PNMED ---
Subjective Date of Service Feb 10, 2017 Subjective Patient slept well overnight No episode of confusion Eating well with good appetite Abdomen still distended, awaits US for marking, prior to paracentesis Exam Vital Signs Vital Sign - Last Date Time Temp Pulse Resp B/P Pulse Ox O2 Delivery O2 Flow Rate FiO2 02/10/17 06:17 87 02/10/17 05:32 36.6 20 121/72 94 Room Air 02/06/17 06:00 2.00 Intake and Output 02/09/17 02/09/17 02/10/17 Cumulative From/Thru 15:00 23:00 07:00 02/05/17 17:17 - 02/10/17 05:32 Intake Total 536 ml 150 ml 5042 ml Output Total 1750 ml 600 ml 36942 ml Balance -1214 ml -450 ml -6613 ml Intake Oral 536 ml 150 ml 5042 ml Output Urine Total 1750 ml 600 ml 78859 ml # Voids 17 # Bowel Movements 1 0 4 Exam AAOX3, no flapping tremor NAD, comfortably laying down on the bed no JVD, MMM, no LAD RRR, nl s1, s2 no mrg CTAB, no w,c S,markedly distended, nontender, BS+ 1+edema bilaterally, erythematous, IVs and Medications Medications Reviewed: Medications were reviewed in detail Lab and Diagnostics Result Diagram: 02/09/17 0520 02/10/17 0525 X-Rays, CTs and MRIs PROCEDURE: X-RAY CHEST, TWO VIEWS IMPRESSION: Left basilar atelectasis. Otherwise stable chest radiograph. Dictated by: Antione Marques M.D. on 02/05/2017 at 18:50 PROCEDURE: CT ABDOMEN AND PELVIS WITH CONTRAST IMPRESSION: 1. Prominent loops of small bowel with air-fluid levels consistent with an adynamic ileus. No evidence of obstruction. 2. Cholelithiasis with no CT evidence of acute cholecystitis. 3. Cirrhosis with splenomegaly. Minimal varices. Moderate abdominal ascites. Dictated by: Antione Marques M.D. on 02/05/2017 at 20:05 12-lead ECG Sinus rhythm HR 88 Assessment & Plan Patient is a pleasant 86 y/o [place] male with past medical history of HTN, Diverticulosis, Afib on Warfarin who was sent by his PCP, Dr. Hunter, for increased ABD swelling and pain with associated SOB. acute, active #Acute Abdominal Ascites, Present on Admission, Active, Stable, Patient has moderate ABD ascites with associated pain (on admission) and an active EtOH history with positive ascites on ABD CT. ascites is most likely related to cirrhosis, possibly malignancy, infection. - pt remained clinically stable with ascities, SBP less likely - s/p 60mg lasix iv, chg to 40mg iv bid, Continue Spironolactone 25mg PO daily, responding well, monitor electrolytes closely, K>4, Mg>2, - hold Anticoagulation for now prior to paracentesis, goal INR1.6, 1.7 today close to target - awaits diagnostic and therapeutic paracentesis given new onset ascites, obtain fluid studies that include: fluid Albumin, Cell Count, Culture, Gram Stain, Protein, lactate dehydrogenase, and Amylase, serum albumin in AM for SAAG (with chem panel), #Newly diagnosed decompensated Cirrhosis, presumably due to alcohol abuse, POA, labs showed mild transaminitis, coagulapathy(hard to interpret given Warfarin on board), abd CT showed, new onset ascites, minimal varices. Viral hep panel neg. -no signs of HE, variceal bleeding, FU with GI for baseline w/u given cirrhosis , -addressed etoh cessation, pt seems to agree. -will consider nonselective BB #alcoholic hepatitis, hyperbilirubinemia, POA, AST/Kel level stable, likely due to alcohol, vial hep panel neg. trend CMP for now chronic, stable, resolved, #positive UA, UCX grew mixed john, remained asymptomatic #Acute Elevated Troponin, Present on Admission, Active, Patient had CP in ED with elevated troponin of 0.02 and no EKG changes, likely demand, level plateaued, won't trend anymore # Chronic Macrocytic Anemia, likely BM toxin, etoh abuse, continue home dose of B12, Thiamine 100mg PO daily # History of Active EtOH Abuse, POA, Active, Stable, addressed multiple times for complete cessation of etoh. #History of Afib, Stable, patient takes Warfarin daily, held since admission, s/ p [id number] po on 02/08 in anticipation of paracentesis, continue on telemetry #History of HTN, Patient was d/c'd off of Metoprolol Succinate 12.5 mg PO daily on 02/05, Hold off of further blood pressure medications other than those listed above until after paracentesis, will monitor BP after procedure. dispo: likely 1-2more days Patient is Full Code GI Prophylaxis: Proton Pump Inhibitor VTE Prophylaxis: Theraputic Anticoag with Warfarin VTE Mechanical Devices: Venous Foot Pump Resuscitation Status: CPR: Attempt Resuscitation Time spent 35min Amrit Mark MD Feb 10, 2017 08:19
--- NOTE | 2017-02-10 11:27 | DRSVH ---
PROCEDURE: US ABDOMEN, LIMITED ([id number]) INDICATIONS: ascites, please madhu the skin has largest pocket TECHNIQUE: Real-time focused scanning was performed of the abdomen, with image documentation. COMPARISON: [facility], CT, CT ABD PELVIS W CON, 02/05/2017, 19:35. FINDINGS: Mild to moderate abdominal fluid the largest in the right lower quadrant. IMPRESSION: Mild to moderate ascites as above. Dictated by: Bessie Martinez M.D. on 02/10/2017 at 11:24 Approved by: Bessie Martinez M.D. on 02/10/2017 at 11:25
--- NOTE | 2017-02-10 12:15 | NUR ---
Social Work- Continued D/C Planning Data: EMR reviewed. Pt is on day 5 of hospitalization. Pt is not medically ready for d/c, pt to receive paracentesis per progress notes. Pt is independent with ADLs at baseline, w/c or fww at baseline. Pt has been 1PA during this admission. Pt is likely to d/c home with his , no additional SW needs. No CM orders received at this time. SW will continue to follow for needs. Assessment: Pt who is independent at baseline Plan: Pt is likely to d/c home with his , no additional SW needs. No CM orders received at this time. SW will continue to follow for needs. Cony Stewart SAWYER HELPER
--- NOTE | 2017-02-10 13:48 | NUR ---
Ambulation Pt unsteady on his feet, leaning forward grappling for support. Walker given to pt. Pt needing instructions for use. Much steadier with walker.
[2017-02-11 00:36] VITALS: BP 116/74; PULSE 84; RESP 18; O2SAT 92
[2017-02-11 04:24] VITALS: BP 116/68; PULSE 75; RESP 18; O2SAT 95
--- NOTE | 2017-02-11 04:31 | NUR ---
NOC activity pt has been cooperative with care. Has walk with DICER OPERATOR to the bathroom. Denies chest pain, sob, n/v or abd discomfort. Telemetry monitoring noted SR 75 with PAC's. Pt's VSS and has been afebrile. Call light within reach. Intentional hourly rounding on going.
[2017-02-11 06:34] LABS: Magnesium 2.1 mg/dL (1.6-2.6)
[2017-02-11 06:41] LABS: INR 1.31 ratio
[2017-02-11] MEDS ORDERED: Albumin 25% 25 GM in IV Premix 1 EACH IV ONE (07:20)
[2017-02-11] MEDS: Multivit-Miner-Folic Acid-Iron Tablet PO SCH (08:01)
[2017-02-11] MEDS: Diltiazem CD 120 mg ER24 Capsule PO SCH (08:01)
[2017-02-11] MEDS: Furosemide 10 mg/mL 4 mL Inj IVPUSH SCH (08:01)
[2017-02-11] MEDS: Pantoprazole 20 mg ER24 Tablet PO SCH (08:01)
[2017-02-11 08:35] VITALS: BP 121/70; PULSE 84; RESP 18; O2SAT 94
[2017-02-11] MEDS ORDERED: 0.9% Sodium Chloride 100 ML ONE (08:53)
--- NOTE | 2017-02-11 08:56 | PCM.PNMED ---
Subjective Date of Service Feb 11, 2017 Subjective pt remained stable, had 7beats of VT yesterday PM, electrolytes, renal function stable, awaits US-guided paracentesis Exam Vital Signs Vital Sign - Last Date Time Temp Pulse Resp B/P Pulse Ox O2 Delivery O2 Flow Rate FiO2 02/11/17 08:35 36.4 84 18 121/70 94 Room Air 02/06/17 06:00 2.00 Intake and Output 02/10/17 02/10/17 02/11/17 Cumulative From/Thru 15:00 23:00 07:00 02/05/17 17:17 - 02/11/17 06:24 Intake Total 670 ml 200 ml 5912 ml Output Total 2700 ml 650 ml 57143 ml Balance -2030 ml -450 ml -9093 ml Intake Oral 620 ml 200 ml 5862 ml IV Total 50 ml 50 ml Output Urine Total 2700 ml 650 ml 54314 ml # Voids 1 18 # Bowel Movements 0 4 Exam AAOX3, no flapping tremor NAD, comfortably laying down on the bed no JVD, MMM, no LAD RRR, nl s1, s2 no mrg CTAB, no w,c S,less distended, nontender, BS+ trace edema bilaterally, erythematous, IVs and Medications Medications Reviewed: Medications were reviewed in detail Lab and Diagnostics Result Diagram: 02/09/17 0520 02/11/17 0543 X-Rays, CTs and MRIs PROCEDURE: X-RAY CHEST, TWO VIEWS IMPRESSION: Left basilar atelectasis. Otherwise stable chest radiograph. Dictated by: Antione Marques M.D. on 02/05/2017 at 18:50 PROCEDURE: CT ABDOMEN AND PELVIS WITH CONTRAST IMPRESSION: 1. Prominent loops of small bowel with air-fluid levels consistent with an adynamic ileus. No evidence of obstruction. 2. Cholelithiasis with no CT evidence of acute cholecystitis. 3. Cirrhosis with splenomegaly. Minimal varices. Moderate abdominal ascites. Dictated by: Antione Marques M.D. on 02/05/2017 at 20:05 12-lead ECG Sinus rhythm HR 88 Assessment & Plan Patient is a pleasant 86 y/o [place] male with past medical history of HTN, Diverticulosis, Afib on Warfarin who was sent by his PCP, Dr. Hunter, for increased ABD swelling and pain with associated SOB. acute, active #Acute Abdominal Ascites, Present on Admission, Active, Stable, Patient has moderate ABD ascites with associated pain (on admission) and an active EtOH history with positive ascites on ABD CT. ascites is most likely related to cirrhosis, possibly malignancy, infection. - pt remained clinically stable with ascities, SBP less likely - s/p 60mg lasix iv, chg to 40mg iv bid, Continue Spironolactone 25mg PO daily, responding well, monitor electrolytes closely, K>4, Mg>2, - hold Anticoagulation for now prior to paracentesis, goal INR1.6, - awaits diagnostic and therapeutic paracentesis today given new onset ascites, obtain fluid studies that include: fluid Albumin, Cell Count, Culture, Gram Stain, Protein, lactate dehydrogenase, and Amylase, serum albumin in AM for SAAG (with chem panel), #Newly diagnosed decompensated Cirrhosis, presumably due to alcohol abuse, POA, labs showed mild transaminitis, coagulapathy(hard to interpret given Warfarin on board), abd CT showed, new onset ascites, minimal varices. Viral hep panel neg. -no signs of HE, variceal bleeding, FU with GI for baseline w/u given cirrhosis , -addressed etoh cessation, pt seems to agree. -will consider nonselective BB #alcoholic hepatitis, hyperbilirubinemia, POA, AST/Kel level stable, likely due to alcohol, vial hep panel neg. trend CMP for now chronic, stable, resolved, #positive UA, UCX grew mixed john, remained asymptomatic #Acute Elevated Troponin, Present on Admission, Active, Patient had CP in ED with elevated troponin of 0.02 and no EKG changes, likely demand, level plateaued, won't trend anymore # Chronic Macrocytic Anemia, likely BM toxin, etoh abuse, continue home dose of B12, Thiamine 100mg PO daily # History of Active EtOH Abuse, POA, Active, Stable, addressed multiple times for complete cessation of etoh. #History of Afib, Stable, patient takes Warfarin daily, held since admission, s/ p [id number] po on 02/08 in anticipation of paracentesis, continue on telemetry #History of HTN, Patient was d/c'd off of Metoprolol Succinate 12.5 mg PO daily on 02/05, Hold off of further blood pressure medications other than those listed above until after paracentesis, will monitor BP after procedure. dispo: likely today Patient is Full Code GI Prophylaxis: Proton Pump Inhibitor VTE Prophylaxis: Theraputic Anticoag with Warfarin VTE Mechanical Devices: Venous Foot Pump Resuscitation Status: CPR: Attempt Resuscitation Time spent 35min Amrit Mark MD Feb 11, 2017 08:56
[2017-02-11 09:57] VITALS: PULSE 88
[2017-02-11 11:38] LABS: BFWBC 435 /mm3; MONOCYTES,BODY FLUID 50 %; OTHER CELLS,BODY FLUID 0
[2017-02-11 12:49] VITALS: BP 122/60; PULSE 79; RESP 18; O2SAT 93
[2017-02-11] MEDS ORDERED: SPIR100T PO (12:56)
[2017-02-11] MEDS ORDERED: FURO40TA4 PO (12:56)
--- NOTE | 2017-02-11 13:05 | PCM.DIMED ---
Discharge Instructions Date of Service Feb 11, 2017 Dates of Hospitalization Feb 05, 2017 at 23:50 Discharge Diagnosis Discharge Diagnosis acute dx new onset ascites, likely in the setting of liver cirrhosis Newly diagnosed decompensated Cirrhosis, presumably due to alcohol abuse alcoholic hepatitis alcohol withdrawal mild troponemia chronic dx # Chronic Macrocytic Anemia # History of Active EtOH Abuse, #History of Afib, #History of HTN, Medication Instructions Additional med instructions continue to take new regimen for your liver, fluid in your belly Spironolactone 100mg daily Furosemide 40mg daily Diet Discharge Diet: Low fat, Low Sodium, Heart Healthy Activity Discharge Activity: No restrictions Call your provider Call your provider for: Bleeding Patient Instructions Patient Instructions You were hospitalized with newly developed water in you belly, you were also found to have liver cirrhosis. This change was likely due to your alcohol drinking. your condition greatly improved with diuretics. You also underwent procedure draining water from your belly, didn't show any signs of infection. Please note that because of you newly developed liver cirrhosis, it is strongly recommended to follow up with GI doctor. you will likely need Endoscopic evaluation as well. Please follow medication instruction as above Please follow up with you primary doctor in one week. It is strongly advised that you should stop drinking alcohol to avoid further damages on your liver. Please follow up rest of the result regarding your belly fluid with your primary doctor Given your physical condition, [facility], RN, PT was arranged at discharge Follow-up with PCP in: 1 week Amrit Mark MD Feb 11, 2017 13:05
--- NOTE | 2017-02-11 14:04 | PCM.DC.MED ---
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 Otherwise stable chest radiograph. Dictated by: Antione Marques M.D. on 02/05/2017 at 18:50 PROCEDURE: CT ABDOMEN AND PELVIS WITH CONTRAST IMPRESSION: 1. Prominent loops of small bowel with air-fluid levels consistent with an adynamic ileus. No evidence of obstruction. 2. Cholelithiasis with no CT evidence of acute cholecystitis. 3. Cirrhosis with splenomegaly. Minimal varices. Moderate abdominal ascites. Dictated by: Antione Marques M.D. on 02/05/2017 at 20:05 ECG 12 Lead Sinus rhythm HR 88 Brief History HPI obtained by on 02/05 Patient is a pleasant 86 y/o [place] male with past medical history of HTN, Diverticulosis, Afib on Warfarin who was sent by his PCP, Dr. Hunter, for increased ABD swelling and pain with associated SOB. Patient states that swelling began 2 weeks ago when he noticed that he was 7lbs heavier that the few days before, and his belly seemed more tense. For the past week, patient has had dull ABD pain that was mainly on the lower left quadrant and would radiate across to the right side. Patient has a significant EtOH history with 2 -3 whiskey drinks with soda a day, but he reports that he "cut back" 3 months ago to just wine. Patient drinks 3 glasses of wine a day. Patient denies any previous ABD swelling in the past, and has never had a formal diagnosis of cirrhosis. Patient reports that he does have internal and external hemorrhoids from frequent constipation that will bleed occasionally. Associated symptoms include SOB, and the patient has had mild CP in the ED. Denies fevers, chills, N/V/D, cough, muscle pain, dark stools, dysuria, or hematuria. In the ED, patient had mild CP and a serum trop came back 0.02 without any EKG changes. Trops are trending. Patient was given NTG with resolution of sxs, and one dose of 0.5mg Ativan. ABD CT showed cirrhosis w/ splenomegaly with moderate abdominal ascites. Hospital Course Patient is a pleasant 86 y/o [place] male with past medical history of HTN, Diverticulosis, Afib on Warfarin who was sent by his PCP, Dr. Hunter, for increased ABD swelling and pain with associated SOB. pt was admitted with mild etoh withdrawal and newly developed ascites. pt underwent course of diuresis with lasx, aldactone. ct abd showed cirrhotic liver with splenomegaly, also minimal varices. There was no signs of HE throughout hospitalization. Given new onset ascites, pt underwent paracentesis on 02/11, which showed transudatives fluid, [id number] with poly10%, initial gram stain was negative. Cytology was sent. Given alcohol drinking, this was believed to from decompensated cirrhosis. pt also had recent TTE in October, was unremarkable. Since pt was on Coumadin, it was hard to interpret coagulopathy, however, with vitK, INR trended down to 1.3, pt had paracentesis without complication. It's possible that patient has underlying coagulopathy. Labs were also consistent to alcoholic liver disease. Viral hep panel was negative. Given no s/s of infection, pt didn't received any abx. Plan was to continue diuretics , [id number] daily, aldactone 100mg qd, repeat CMP in one week, also referral to GI for endoscopic eval, possibly start nonselctive BB. HH/RN/PT was arranged at d/c acute, active #Acute Abdominal Ascites, Present on Admission, Active, Stable, Patient has moderate ABD ascites with associated pain (on admission) and an active EtOH history with positive ascites on ABD CT. ascites is most likely related to cirrhosis, possibly malignancy, infection. - pt remained clinically stable with ascities, SBP less likely - s/p 60mg lasix iv, chg to 40mg iv bid, Continue Spironolactone 25mg PO daily, responding well, monitor electrolytes closely, K>4, Mg>2, - hold Anticoagulation for now prior to paracentesis, goal INR1.6, - awaits diagnostic and therapeutic paracentesis today given new onset ascites, obtain fluid studies that include: fluid Albumin, Cell Count, Culture, Gram Stain, Protein, lactate dehydrogenase, and Amylase, serum albumin in AM for SAAG (with chem panel), #Newly diagnosed decompensated Cirrhosis, presumably due to alcohol abuse, POA, labs showed mild transaminitis, coagulapathy(hard to interpret given Warfarin on board), abd CT showed, new onset ascites, minimal varices. Viral hep panel neg. -no signs of HE, variceal bleeding, FU with GI for baseline w/u given cirrhosis , -addressed etoh cessation, pt seems to agree. -will consider nonselective BB #alcoholic hepatitis, hyperbilirubinemia, POA, AST/Kel level stable, likely due to alcohol, vial hep panel neg. trend CMP for now chronic, stable, resolved, #positive UA, UCX grew mixed john, remained asymptomatic #Acute Elevated Troponin, Present on Admission, Active, Patient had CP in ED with elevated troponin of 0.02 and no EKG changes, likely demand, level plateaued, won't trend anymore # Chronic Macrocytic Anemia, likely BM toxin, etoh abuse, continue home dose of B12, Thiamine 100mg PO daily # History of Active EtOH Abuse, POA, Active, Stable, addressed multiple times for complete cessation of etoh. #History of Afib, Stable, patient takes Warfarin daily, held since admission, s/ p [id number] po on 02/08 in anticipation of paracentesis, continue on telemetry #History of HTN, Patient was d/c'd off of Metoprolol Succinate 12.5 mg PO daily on 02/05, Hold off of further blood pressure medications other than those listed above until after paracentesis, will monitor BP after procedure. dispo: likely today Patient is Full Code Exam Vital Signs (Last) Date Time Temp Pulse Resp B/P Pulse Ox O2 Delivery O2 Flow Rate FiO2 02/11/17 12:49 36.4 79 18 122/60 93 Room Air 02/06/17 06:00 2.00 Exam AAOX3, no flapping tremor NAD, comfortably laying down on the bed no JVD, MMM, no LAD RRR, nl s1, s2 no mrg CTAB, no w,c S,less distended, nontender, BS+ trace edema bilaterally, erythematous, Test 02/05/17 17:00 02/05/17 17:59 02/05/17 18:00 02/06/17 01:22 Hold Purple Top Tube Received (Received) Hold Blue Top Tube Received (Received) Hold Red Top Tube Received (Received) Hold Becket Top Tube Received (Received) D-Dimer 0.81mg/L FEU (<0.50) Pro-B-Type Natriuretic Peptide 461.5pg/mL (0-486) Hold Bee Top Tube Received (Received) Urine Color Yellow (YELLOW) Urine Appearance Hazy (CLEAR,HAZY) Urine pH 6.5 (5.0-8.0) Urine Specific Hardin 1.010 (1.003-1.035) Urine Protein Negativemg/dL (NEG,TRACE) Urine Glucose (UA) Negativemg/dL (NEGATIVE) Urine Ketones Negativemg/dL (NEGATIVE) Urine Occult Blood Large (NEGATIVE) Urine Nitrite Positive (NEGATIVE) Urine Bilirubin Negative (NEGATIVE) Urine Urobilinogen Normalmg/dL (NORMAL) Urine Leukocyte Esterase Small (NEGATIVE) Urine RBC 11-50/hpf (0-2) Urine WBC 6-10/hpf (0-5) Urine Epithelial Cells Occasional/hpf (NONE-MOD) Urine Crystals None seen (NONE SEEN) Urine Bacteria Few/hpf (NONE-FEW) Urine Hyaline Casts None/lpf (NONE) Urine Granular Casts None seen (NONE SEEN) Urine Waxy Casts None seen (NONE SEEN) Urine Red Blood Cell Casts None seen (NONE SEEN) Urine White Blood Cell Casts None seen (NONE SEEN) Urine Mucus None seen (None Seen) Urine Trichomonas None seen (NONE SEEN) Urine Yeast None (NONE SEEN) Urinalysis Comment None Urine Culture Reflexed Indicated Test 02/06/17 05:40 02/07/17 05:00 02/08/17 05:35 02/09/17 05:20 Whole Blood Vitamin B1 Level 217.2nmol/L (66.5-200.0) Vitamin B12 Level 1534pg/mL (211-946) Hepatitis A IgM Antibody Negative (Negative) Hepatitis B Surface Antigen Negative (Negative) Hepatitis B Core IgM Antibody Negative (Negative) Hepatitis C Antibody <0.1s/co ratio (0.0-0.9) Hepatitis C Comment Comment (.) Troponin T 0.029ug/L (0.0-0.011) Lipase 17U/L (13-60) Thyroid Stimulating Hormone (TSH) 1.600uIU/mL (0.450-4.500) Free Thyroxine 1.44ng/dL (0.82-1.77) White Blood Count 5.6th/mm3 (3.8-10.1) Red Blood Count 3.56mil/mm3 (4.40-5.80) Hemoglobin 12.7g/dL (13.8-17.2) Hematocrit 37.8% (41.0-50.0) Mean Corpuscular Volume 106.2fL (81-100) Mean Corpuscular Hemoglobin 35.7pg (27.0-35.0) Mean Corpuscular Hemoglobin Concent 33.6% (32.0-37.0) Red Cell Distribution Width 14.1% (12.3-15.4) Platelet Count 117bil/L (150-400) Neutrophils (%) (Auto) 68.0% (40-74) Lymphocytes (%) (Auto) 13.0% (14-46) Monocytes (%) (Auto) 14.4% (4-12) Eosinophils (%) (Auto) 4.0% (0-5) Basophils (%) (Auto) 0.2% (0-3) Phosphorus Level 2.9mg/dL (2.5-4.9) Ferritin 239ng/mL (30-400) Test 02/11/17 05:43 02/11/17 09:30 Prothrombin Time 14.1sec (8.1-12.5) Prothromb Time International Ratio 1.31ratio Sodium Level 140mEq/L (134-144) Potassium Level 4.1mEq/L (3.5-5.2) Chloride Level 98mEq/L (97-108) Carbon Dioxide Level 30mmol/L (18-29) Blood Urea Nitrogen 14mg/dL (8-27) Creatinine 0.90mg/dL (0.76-1.27) Estimat Glomerular Filtration Rate 85mL/min (>59) Glucose Level 113mg/dL (60-99) Calcium Level 8.8mg/dL (8.5-10.1) Magnesium Level 2.1mg/dL (1.6-2.6) Total Bilirubin 2.0mg/dL (0.0-1.2) Aspartate Amino Transf (AST/SGOT) 68U/L (0-50) Alanine Aminotransferase (ALT/SGPT) 26U/L (0-44) Alkaline Phosphatase 134U/L (25-160) Total Protein 6.7g/dL (6.4-8.4) Albumin 3.0g/dL (3.4-5.0) Body Fluid Source Peritoneal fluid Body Fluid Color Yellow (Clear) Body Fluid Appearance Clear Body Fluid WBC 435/mm3 Body Fluid RBC 725/mm3 Body Fluid Polynuclear WBCs 10% Body Fluid Lymphocytes 40% Body Fluid Monocytes 50% Body Fluid Eosinophils 0% Body Fluid Basophils 0% Body Fluid Total Protein 2.0g/dL Body Fluid Lactate Dehydrogenase 99U/L Body Fluid Amylase 17U/L Body Fluid Comment Peritoneal Fluid Glucose 175mg/dL Discharge Medications Discharge Medications ([Vit B1 50 Mg]) 100 MG PO DAILY (Reported) Cholecalciferol (Vitamin D3) (Vitamin D3) 2,000 Unit Tablet 2,000 UNIT PO DAILY (Reported) Cyanocobalamin (Vitamin B-12) (B-12) 500 Mcg Tab.rapdis 500 MCG SL DAILY ( Reported) Diltiazem ER (Dilt XR) 120 Mg Cap.er.deg 120 MG PO DAILY (Reported) Flecainide Acetate (Flecainide Acetate) 50 Mg Tablet 25 MG PO BID (Reported) Furosemide (Furosemide) 40 Mg Tablet 40 MG PO DAILY Prescribed by: AMRIT BURNETTE MD Spironolactone (Aldactone) 100 Mg Tablet 100 MG PO DAILY Prescribed by: AMRIT BURNETTE MD Warfarin Sodium (Warfarin Sodium) 2.5 Mg Tablet 2.5 MG PO SAT,SAT,,SAT,SAT,S ( Reported) Warfarin Sodium (Warfarin Sodium) 2.5 Mg Tablet 2.5 MG PO BID ON SATURDAY ONLY ( Reported) Additional med instructions continue to take new regimen for your liver, fluid in your belly Spironolactone 100mg daily Furosemide 40mg daily Followup Plan Disposition: home with HH Discharge Diet: Low fat, Low Sodium, Heart Healthy Discharge Activity: No restrictions Patient Instructions You were hospitalized with newly developed water in you belly, you were also found to have liver cirrhosis. This change was likely due to your alcohol drinking. your condition greatly improved with diuretics. You also underwent procedure draining water from your belly, didn't show any signs of infection. Please note that because of you newly developed liver cirrhosis, it is strongly recommended to follow up with GI doctor. you will likely need Endoscopic evaluation as well. Please follow medication instruction as above Please follow up with you primary doctor in one week. It is strongly advised that you should stop drinking alcohol to avoid further damages on your liver. Please follow up rest of the result regarding your belly fluid with your primary doctor Given your physical condition, [facility], RN, PT was arranged at discharge Follow-up with PCP in: 1 week Time spent 65min Amrit Burnette MD Feb 11, 2017 14:04
--- NOTE | 2017-02-11 14:19 | NUR ---
Social Work-discharge: Data:EMR reviewed. Pt is on day 6 of hospitalization for shortness of breath per H&P. Pt is medically stable for discharge. order received for HH-RN and PT. SW spoke with pt's regarding HH, HH choice list provided. agreeable to HH with no agency preference. SW referred to rotating calendar and made referral to [facility] for RN and PT, access given. SW provided Jose Alberto Huitron with [facility] and orders. Pt's to provide transport home today. All updated and agreeable to plan. Assessment:Pt who would benefit from HH. Plan:Pt to discharge home today via POV. [facility] and orders provided to [facility] for RN and PT. All updated and agreeable to plan. DAVIN Crandall
--- NOTE | 2017-02-11 14:43 | NUR ---
Discharge Pt d/cd home at 1435 via [facility] by an aide, with his . IV d/cd. VSS. All personal belongings left home with pt. F/u appt scheduled with the residency clinic for 02/19 @ 1445. Address and # provided to family if rescheduling need came up. Discharge teaching provided, included importance of new Rx and f/u OP labs. OP requisition given to family.
--- NOTE | 2017-02-11 17:07 | DRSVH ---
PROCEDURE: US GUIDED PARACENTESIS, PRIMARY ([id number]) INDICATIONS: new onset ascites presumed cirhosis TECHNIQUE: The indications, alternatives, benefits, risks, and complications of the procedure were explained to the patient. Written informed consent was obtained and placed in the chart. The abdomen and pelvis were examined sonographically, and an appropriate site was chosen for paracentesis. The skin was pre pared and draped in the usual sterile fashion, and 1% lidocaine was infiltrated from the skin down th rough the peritoneal surface. A 19-gauge catheter-covered needle was then introduced into the perito tennille space, the catheter was advanced and the needle was withdrawn, and thereafter peritoneal fluid w as withdrawn. The catheter was then removed and a dressing was applied. The fluid was discarded if the clinician did not order diagnostic testing of the fluid. COMPARISON: [facility], CT, CT ABD PELVIS W CON, 02/05/2017, 19:35. FINDINGS: Access site: Left lower quadrant Needle: One-Step centesis catheter with introducer needle. Fluid volume and description: 120 cc of clear peritoneal fluid. Fluid sent for diagnostic testing: Fluid sent for cytology, multiple chemistry panels and therapeuti c drainage. Medications: 1% lidocaine for local anaesthesia. Complications: None. IMPRESSION: Successful ultrasound-guided paracentesis. Dictated by: Casey PRATT Interpreted: Bessie Martinez MD on 02/11/2017 at 10:54 Approved by: Bessie Martinez M.D. on 02/11/2017 at 17:05
[2017-02-12 10:11] LABS: pH, Body Fluid 7.6 (Not Estab.)
--- NOTE | 2017-02-15 15:57 | PATH ---
SURGICAL PATHOLOGY Attending Physician:Bessie Martinez CASE STATUS: Signed Out PATIENT NAME: MARTINEZ RICO PID: [id number] : 1930 DATE COLLECTED:02/11/2017 00:00 SPECIMEN: Peritoneal Fluid CLINICAL HISTORY: Peritoneal Fluid ICD-10 code not given FINAL DIAGNOSIS: PERITONEAL FLUID, CYTOLOGY: NEGATIVE FOR MALIGNANT CELLS. ICD10 R18.8 NOTE: Scattered aggregates of benign appearing cells are favored to be histiocytes. No high-grade malignant cells are identified. GROSS DESCRIPTION: Received fresh on 02/12/2017 is approximately 50 cc of clear yellow fluid. Prepared are one cell block and one Cytospin slide. Vo MICRO DESCRIPTION: Immunohistochemical stains were performed to characterize cells of interest. Control stains showed appropriate reactivity. RESULTS: BerEP4: Negative MOC-31: Negative WT-1: Highlights mesothelial cells Calretinin: Highlights mesothelial cells CK5/6: Highlights mesothelial cells Interpretation: No evidence of an abnormal cell population. This test was developed and its performance characteristics determined by [facility]. It has not been cleared or approved by the U. [place]. Food and Drug Administration. The FDA has determined that such clearance or approval is not necessary. This test is used for clinical purposes. It should not be regarded as investigational or for research. ICD-9 CODES: CPT CODES: 1: 98289, 77597, 93610, 02636(4) Electronically Signed Out Raisa Can MD [facility] Pathology [facility] [address], [place] [address] Technical component performed at [facility], [facility] [address], [place], [address]
== END 2017-02-11 14:36 | disposition home health service (06) | DRG 433 ==
LOC: SED 17:04 → MPC 23:50
PROVIDERS: ADMIT Internal Medicine; ATTEND Internal Medicine
PROC: 4A033R1 Measurement of Arterial Saturation, Peripheral, Percutaneous Approach (ICD-10-PCS; 2017-02-05)
PROC: 0W9G3ZX Drainage of Peritoneal Cavity, Percutaneous Approach, Diagnostic (ICD-10-PCS; principal; 2017-02-11)
DX: K70.31 Alcoholic cirrhosis of liver with ascites (principal); F10.239 Alcohol dependence with withdrawal, unspecified; F12.90 Cannabis use, unspecified, uncomplicated; K70.11 Alcoholic hepatitis with ascites; K64.8 Other hemorrhoids; M19.012 Primary osteoarthritis, left shoulder; D63.8 Anemia in other chronic diseases classified elsewhere; I48.2 Chronic atrial fibrillation; Z79.01 Long term (current) use of anticoagulants